=== PATIENT | female | born 1995 | race African-American/Black ===

== ENCOUNTER 2017-02-04 18:37 | Emergency (ER) | payer OTHER, MEDICAID ==
[~2017-02-04] VITALS: Ht 167.6 cm; Wt 85.0 kg
[2017-02-04] MEDS ORDERED: KEPP500 PO (18:43)
[2017-02-04] MEDS ORDERED: LEVETIRACETAM 500MG TABLET PO ONE (19:00)
[2017-02-04 19:23] LABS: EOSINOPHILS % 2.3 % (0.0-5.0); HEMATOCRIT. 36.5 % (36.0-48.0); HEMOGLOBIN. 12.3 g/dL (12.0-16.0); LYMPHOCYTES % 44.3 % (20.0-50.0); MEAN CORPUSCULAR HEMOGLOBIN 31.2 pg (28.0-32.0); MEAN CORPUSCULAR VOLUME 92.8 fL (81.0-99.0); MEAN PLATELET VOLUME 7.9 fl (7.4-10.4); MONOCYTES % 8.1 % (2.0-8.0); NEUTROPHILS % 44.3 % (40.0-76.0); PLATELET 243 x1000/uL (130-400); RED BLOOD CELL COUNT 3.94 mill/uL (4.2-5.4); RED CELL DISTRIBUTION WIDTH 13.5 % (11.6-14.6)
[2017-02-04 19:29] LABS: CHLORIDE 109 mEq/L (98-107)
[2017-02-04 19:37] LABS: CARBON DIOXIDE 22 mEq/L (21-32)
[2017-02-04 19:45] VITALS: BP 122/66
== END 2017-02-04 20:50 | disposition home or self-care (01) ==
LOC: ER 20:41
DX: G40.409 Other generalized epilepsy and epileptic syndromes, not intractable, without status epilepticus (principal)
CPT/HCPCS: 36415; 80053; 81025; 85025; 99284